=== PATIENT | female | born 1980 | race Caucasian/White ===

== ENCOUNTER → 2021-11-05 | Outpatient (CLI) | payer OTHER | LOC: KOH-I 11-01 14:00 → CT 14:39 | DX: R10.30 Lower abdominal pain, unspecified (principal); N20.0 Calculus of kidney; Z87.442 Personal history of urinary calculi; N39.0 Urinary tract infection, site not specified; N83.201 Unspecified ovarian cyst, right side | CPT/HCPCS: Q9967 ==